=== PATIENT | female | born 1955 | race Caucasian/White ===

== ENCOUNTER 2023-02-11 06:07 | Observation (INO) ==
--- NOTE | 2023-01-28 13:21 | PAT Medication Instructions ---
Medication Instructions Date of Service January 28, 2023 Home Medications Lactobacillus acidophilus 1.5 mg (250 million cell) capsule (Probiotic Acidophilus) 1,000 mmu cells PO QAM calcium carbonate 500 mg-vitamin D3 10 mcg (400 unit) tablet (Calcium 500 + D) 1 tab PO QPM cholecalciferol (vitamin D3) 125 mcg (5,000 unit) tablet (Vitamin D3) 125 mcg PO QAM irbesartan 150 mg-hydrochlorothiazide 12.5 mg tablet 1 tab PO QAM meloxicam 7.5 mg tablet 7.5 mg PO BID multivitamin 1 tab PO QAM omega-3 fatty acids 1,000 mg PO BID sertraline 50 mg tablet 50 mg PO QPM vitamin E (dl, acetate) 180 mg (400 unit) capsule 180 mg PO QAM ASK your surgeon for instructions meloxicam 7.5 mg tablet 7.5 mg PO BID STOP taking 2 weeks before surgery omega-3 fatty acids 1,000 mg PO BID vitamin E (dl, acetate) 180 mg (400 unit) capsule 180 mg PO QAM DO NOT take the morning of surgery Lactobacillus acidophilus 1.5 mg (250 million cell) capsule (Probiotic Acidophilus) 1,000 mmu cells PO QAM cholecalciferol (vitamin D3) 125 mcg (5,000 unit) tablet (Vitamin D3) 125 mcg PO QAM irbesartan 150 mg-hydrochlorothiazide 12.5 mg tablet 1 tab PO QAM multivitamin 1 tab PO QAM Take evening before surgery sertraline 50 mg tablet 50 mg PO QPM calcium carbonate 500 mg-vitamin D3 10 mcg (400 unit) tablet (Calcium 500 + D) 1 tab PO QPM OTHERWISE NOTHING TO EAT OR DRINK AFTER MIDNIGHT Other Notes If you have any questions please call us at [phone] or [phone] or [phone] or [phone]
--- NOTE | 2023-02-02 14:52 | Anesthesiology Consultation ---
Date of Service February 02, 2023 Assessment & Plan (1) Encounter for pre-operative examination: - COVID screening: Per assessment on 02/02: No known COVID-19 positive contacts or current COVID-19 related symptoms. Travel screen negative. Patient vaccinated. At surgeon discretion if preop Covid testing being done. - Outpatient joint assessment: Pt currently scheduled for inpatient pathway. If surgeon requests review for outpatient joint pathway, patient is an acceptable candidate for outpatient joint program from anesthesia standpoint pending surgeon's office assessment that patient is motivated, has good support and completes [facility] Program preop requirements. - Cardiology visit (12/28/22): "Patient has no cardiovascular complaints. Transthoracic echocardiogram recently.. Demonstrates normal left ventricular systolic function with mild aortic stenosis and moderate mitral regurgitation.. Patient does have normal left ventricular systolic function. At this time recommend monitoring patient clinically.. periodic transthoracic echocardiogram to assess for progression of valvular heart disease. Patient has no signs or symptoms of heart failure. Patient has no complaints of chest pain or shortness of breath. We will obtain a transthoracic echocardiogram prior to next scheduled visit in 1 year. Patient states she is planning on undergoing a knee replacement next month.. From a cardiovascular standpoint, do not recommend further invasive or noninvasive cardiovascular testing or procedures prior to planned knee replacement. Patient should be considered a low cardiovascular risk candidate." - PCP note (02/04/23): "Yes" medically cleared for surgery Chart Review Chart Review: Acceptable Risk for Surgery and Patient seen in Pre Admission Testing Teaching & Discussion Pre-Anesthesia Teaching/Discussion Notes: Instructed NPO after midnight before surgery,except medications with 15 cc of water. Medication instructions provided according to the PAT guidelines. History Surgery Operation Date: 02/11/23 07:00 Proposed Procedures p Right Total Knee Arthroplasty - Marty Vicente MD Height/Weight Height: 5 ft 4 in Weight: 96.9 kg Allergies Allergy/AdvReac Type Severity Reaction Status Date / Time oxycodone AdvReac Mild Nausea Verified 01/22/23 15:03 Medications Home Medications Medication Instructions Recorded Confirmed Last Taken Lactobacillus acidophilus 1.5 mg 1,000 mmu cells PO QAM 01/22/23 01/22/23 Unknown (250 million cell) capsule (Probiotic Acidophilus) calcium carbonate 500 mg-vitamin 1 tab PO QPM 01/22/23 01/22/23 Unknown D3 10 mcg (400 unit) tablet (Calcium 500 + D) cholecalciferol (vitamin D3) 125 125 mcg PO QAM 01/22/23 01/22/23 Unknown mcg (5,000 unit) tablet (Vitamin D3) irbesartan 150 1 tab PO QAM 01/22/23 01/22/23 Unknown mg-hydrochlorothiazide 12.5 mg tablet meloxicam 7.5 mg tablet 7.5 mg PO BID 01/22/23 01/22/23 Unknown multivitamin 1 tab PO QAM 01/22/23 01/22/23 Unknown omega-3 fatty acids 1,000 mg PO BID 01/22/23 01/22/23 Unknown sertraline 50 mg tablet 50 mg PO QPM 01/22/23 01/22/23 Unknown vitamin E (dl, acetate) 180 mg 180 mg PO QAM 01/22/23 01/22/23 Unknown (400 unit) capsule Past Medical History Medical History Anxiety History of COVID-19 09/2021 > mild cold symptoms Hyperlipidemia Hypertension Lymphoma Follows with Dr Henriquez, recently monitored ("some are shrinking"), no current treatment Mild aortic stenosis Mild aortic stenosis (ROSE MARIE 1.2 cm, MG 17 mmHg) per 09/2022 echo Osteoarthritis Sleep apnea CPAP Exercise / Class Metabolic Activity II 4-5 Yardwork/Stairs/Walk up hill Past Family History Family History Other No family history of adverse response to anesthesia Past Surgical History Surgical History History of cataract surgery R/L History of cholecystectomy History of colonoscopy History of esophagogastroduodenoscopy (EGD) Past Anesthesia History No Hx of Anesthesia Complications and No Family Hx of Anesthesia Complications History of PONV No Hx of PONV and No Hx of Motion Sickness Social History Smoking Status: Never smoker Do You Dip or Chew Tobacco: No Hx Alcohol Use: Yes alcohol intake frequency: a few times a month Hx Substance Use: No substance use type: does not use Review of Systems Patient denies chest pain, shortness of breath, dyspnea on exertion, reflux, cough, wheezing, palpitations. Physical Exam Vital Signs VITALS BP 135/79 P 66 TEMP 98.3 SP02 95%RA RESP 16 PHYSICAL Full cervical extension range of motion. Full TMJ range of motion. TMD 3 finger breaths Mallampati Score 3 Dentition: intact, + crowns, upper front "sealed together" Lungs: clear throughout to auscultation Cardiac: regular rate and rhythm, II-III/ systolic murmur with faint carotid bruit Spine: normal Extremities: no LE edema Lab Results Anesthesia Preop Results Results Anesthesia Widget: WBC 7.93 K/ul (4.8-10.8) 02/02/23 Hgb 13.6 g/dl (12.0-16.0) 02/02/23 Hct 40.6 % (37.0-47.0) 02/02/23 Plt 243 K/uL (130-400) 02/02/23 Na 141 mmol/L (136-145) 02/03/23 K 3.6 mmol/L (3.5-5.1) 02/03/23 Cl 104 mmol/L (98-107) 02/03/23 CO2 30 mmol/L (21-32) 02/03/23 BUN 16 mg/dl (6-23) 02/03/23 Creat 0.57 mg/dl (0.6-1.2) L 02/03/23 Glucose Level 101 mg/dl (70-99(Fasting)) H 02/03/23 PT 11.0 Seconds (9.0-12.0) 02/02/23 PTT 28.1 Seconds (21.0-31.0) 02/02/23 INR 1.0 (0.9-1.1) 02/02/23 Urine Color Yellow 02/02/23 Urine Appearance Clear (Clear) 02/02/23 Urine pH 7.0 (4.5-7.5) 02/02/23 Urine Specific [place] 1.013 (1.000-1.030) 02/02/23 Urine Protein Negative (Negative) 02/02/23 Urine Glucose (UA) Negative (Negative) 02/02/23 Urine Ketones Negative (Negative) 02/02/23 Urine Blood Trace (Negative) H 02/02/23 Urine Nitrite Negative (Negative) 02/02/23 Urine Bilirubin Negative (Negative) 02/02/23 Urine Urobilinogen Negative (Negative) 02/02/23 Urine Leukocyte Esterase Negative (Negative) 02/02/23 Urine WBC (Auto) 1-5 /hpf (0-5) 02/02/23 Urine RBC (Auto) 5-10 /hpf (0-4) H 02/02/23 Urine Hyaline Casts (Auto) 0 /lpf (0-5) 02/02/23 Urine Epithelial Cells (Auto) 10-20 /lpf (0-5) H 02/02/23 Urine Bacteria (Auto) Negative (Negative) 02/02/23 Blood Type O Negative 02/02/23 Antibody Screen NEGATIVE 02/02/23 Testing Electrocardiogram Date: 12/28/22 Sinus rhythm at 63 bpm. Low voltage in precordial leads. Intraventricular conduction defect and left axispossible anterior fascicular block consider ventricular hypertrophy. Old anterior infarct. Echocardiogram Date: 10/15/22 LVEF 58%. LV global contractility normal. Mild LAE. Fibrocalcific disease of the aortic valve. Grade 2 diastolic dysfunction. Elevated LAP. Moderate MR. Mild concentric LVH. Mild aortic stenosis (ROSE MARIE 1.2 cm, MG 17 mmHg). COVID-19 Risk Screen Screening Information COVID-19 Screen Date: 02/02/23 Exposure 21 Days Family/Household +COVID Last 21 Days: No Exposure 10 Days Any COVID Exposure Last 10 Days: No Symptoms Last 10 Days Experienced COVID Sx Last 10 Days: No + COVID 0-90 Days COVID + in Last 0-90 Days: No
--- NOTE | 2023-02-03 16:31 | History & Physical Report ---
Date of Service February 03, 2023 Assessment & Plan (1) Osteoarthritis of right knee: Plan: PRE-OP Diagnosis: Right knee osteoarthritis Planned Procedure: Right total knee arthroplasty Plan: Patient is scheduled to undergo this procedure at the [facility] with Dr. Vicente on , February 11, 2023. Risks and complications of the procedure such as: Infection, bleeding, pain, scarring, nerve blood vessel damage, weakness, wound problems, stiffness, incomplete relief of symptoms, hardware failure, hardware loosening, wear, fracture, tendon or ligament injury, blood clots, embolism, cardiac, stroke and were explained to the patient at her visit today and informed consent for the procedure will be obtained on the morning of surgery with Dr. Vicente. Patient also understands risks of proceeding with surgical intervention during the COVID-19 pandemic. Currently she is asymptomatic and states that she has not been in contact with anyone positive for the virus recently. We will need to obtain preoperative medical clearance from the patient's primary care provider Dr. Kennedy. We have already obtained cardiac clearance from the patient's loom setter Dr. Melgar. Patient is scheduled to meet with anesthesia at the hospital later this afternoon. While there she will obtain a CBC with differential, complete metabolic panel, PT/INR, PTT, blood type and screen, urinalysis, urine culture and sensitivity, and a nasal culture for MRSA. Her EKG is up-to-date. During today's visit we reviewed the total knee packet. I provided the patient with paperwork to obtain obtaining a handicap placard for her vehicle. I provided her with information about lectures offered by [facility] in regards to joint replacement surgery. Patient states that she has a walker she will bring with her on the morning of surgery. She also has a raised toilet seat and a shower bench. We discussed discharge planning from the hospital. Patient states she will most likely do in-home physical therapy for the first 2 weeks before transitioning to outpatient physical therapy. I advised the patient that she will be provided with a prescription for narcotic pain medication for postoperative pain control. We will have her on aspirin twice daily for the first 30 days postoperatively for blood clot prevention. Patient verbalized understanding of all information provided during today's visit. She thanks for the care that she received. If she has questions or concerns prior to her surgery, she will contact clinic. Patient be scheduled for 2-week postoperative follow-up visit with Zaida Goodson PA-C on February 25, 2023 at 10:45 AM This chart was completed utilizing [employer] voice recognition software. Grammatical errors, random word insertions, pronoun errors, and in complete sentences are an occasional consequence of the system. Any questions or concerns about the content, text, or information contained within the body of this dictation should be addressed directly to the physician for clarification.. History of Present Illness Chief Complaint: Chief Complaint: Right knee pain Primary Care Provider: NO PCP History of Present Illness (including history relevant to procedure): This 67-year-old female presents to clinic today for preoperative history and physical. Patient has a longstanding history of right knee pain. She states that she was seen by an orthopedist who outside organization and does not feel comfortable with them. She states that at the recommendation of our physical therapists she came to our clinic for evaluation by Dr. Vicente and was very impressed and would like to proceed with her total knee surgery with our group. Patient has failed conservative treatment with physical therapy, use of oral nonsteroidal agents, corticosteroid injections. She states the pain seems to be exacerbated when she does stairs or transitions from a seated to a standing position after sitting for long period of time. Patient localizes most of her pain over the medial joint space. Review Of Systems: A 12 point review of systems is performed and is unremarkable except for those things stated in the HPI and past medical history. Past Medical History: Problems: History of a heart murmur Hypertension Heart palpitations Sleep apnea with CPAP use Anxiety Obesity History of lymphoma Procedure History Procedure Procedure Date Comments Cholecystectomy Abdominal biopsy of lymph node Colonoscopy Cataract removal Allergies and Sensitivities: Percocet(Nausea) Family history: Diabetes and cancer Social history: Patient occasionally consumes alcohol. She denies tobacco or illicit drug use. Current Home Meds: (Last Updated 02/02 13:41) bifidobacterium-lactobacillus (Probiotic Formula) calcium carbonate (calcium (as carbonate) 500 mg oral tablet) cholecalciferol (Vitamin D3) hydroCHLOROthiazide-irbesartan (hydroCHLOROthiazide-irbesartan 12.5 mg-150 mg oral tablet) 1 tab PO Daily meloxicam (meloxicam 7.5 mg oral tablet) 7.5 mg PO Daily multivitamin 1 tab PO Daily omega-3 polyunsaturated fatty acids (Fanshawe-3 Fish Oil) sertraline (sertraline 50 mg oral tablet) 50 mg PO Daily vitamin E Allergies Allergy/AdvReac Type Severity Reaction Status Date / Time oxycodone AdvReac Mild Nausea Verified 01/22/23 15:03 Home Medications Medication Instructions Recorded Confirmed Type Lactobacillus acidophilus 1.5 mg 1,000 mmu cells PO QAM 01/22/23 01/22/23 History (250 million cell) capsule (Probiotic Acidophilus) calcium carbonate 500 mg-vitamin 1 tab PO QPM 01/22/23 01/22/23 History D3 10 mcg (400 unit) tablet (Calcium 500 + D) cholecalciferol (vitamin D3) 125 125 mcg PO QAM 01/22/23 01/22/23 History mcg (5,000 unit) tablet (Vitamin D3) irbesartan 150 1 tab PO QAM 01/22/23 01/22/23 History mg-hydrochlorothiazide 12.5 mg tablet meloxicam 7.5 mg tablet 7.5 mg PO BID 01/22/23 01/22/23 History multivitamin 1 tab PO QAM 01/22/23 01/22/23 History omega-3 fatty acids 1,000 mg PO BID 01/22/23 01/22/23 History sertraline 50 mg tablet 50 mg PO QPM 01/22/23 01/22/23 History vitamin E (dl, acetate) 180 mg 180 mg PO QAM 01/22/23 01/22/23 History (400 unit) capsule Past Med/Surg History Medical History Anxiety Cardiac murmur no issues - followed with [facility] for clearance - does not normally follow with a cardiology History of COVID-19 09/2021 > mild cold symptoms Hyperlipidemia Hypertension Lymphoma Follows with Dr Henriquez, recently monitored ("some are shrinking"), no current treatment Sleep apnea CPAP Surgical History History of cataract surgery R/L History of cholecystectomy History of colonoscopy History of esophagogastroduodenoscopy (EGD) Family History Other No family history of adverse response to anesthesia Social History Smoking Status: Never smoker Second Hand Exposure: Yes (years ago); Do You Dip or Chew Tobacco: No; Hx Alcohol Use: Yes Hx Substance Use: No Preferred Language: [place] Communication Ability: Effective Airplane Tester Required: No Beliefs That Will Affect Care: None Current Living Situation: Alone Feels Safe at Home: Yes Assistive Devices: Brace/Splint/Immobilizer and CPAP Review of Systems All systems reviewed & are unremarkable except as noted in Subjective Physical Exam Physical Exam: Physical Exam: (relevant to the procedure, including heart and lung evaluation) General: Alert and oriented x3 with proper grooming and hygiene Eyes: Pupils are equal react to light with accommodation. Extraocular movements are intact Throat: Posterior oropharynx clear with absence of edema, erythema or exudate. Dentition is appropriate Cardiac: Patient is a regular rate and rhythm with a grade 3/6 midsystolic murmur heard best over left lower sternal border. Lungs: Clear to auscultation throughout with no wheezing, rales or rhonchi appreciated Abdomen: Obese, nondistended, nontender with NABS Extremities: Right knee; range of motion is from 0 degrees of extension to 118 degrees of flexion. Patient experiences some slight medial joint line tenderness when the knee is palpated in flexed position. There is audible crepitation with passive range of motion. There is visible varus malalignment. Her patella is normal lateral arthritic change within the patellofemoral joint. She has no laxity with varus valgus stressing. AP drawer sign Romana test are negative. Patient is neurovascular intact in the right lower extremity. Neuro: Cranial nerves II through XII are intact no motor or sensory deficit Skin: Normal in appearance no open skin areas or discharge Results & Data Diagnostic Findings Studies (relevant to the procedure): X-rays done include standing long-leg alignment films. These show varus malalignment with the weightbearing axis passing through the medial tibial plateau. She has severe osteoarthritis near [id number] in the medial compartment of the knee.
[~2023-02-11 06:07] MED LIST: ACETAMINOPHEN 500 MG TAB PO SCH; CeleBREX 200 MG CAP PO SCH; FAMOTIDINE 20 MG TAB PO SCH; LR 500ML BOLUS, THEN 15ML/HR IV SCH; LR 60ML/HR IV SCH; ROPIVACAINE 0.5% HCL/PF 150 MG, BUPIVACAINE 0.75% MPF 20 ML, EPINEPHrine 0.15 MG, Ketor... INFIL SCH; Scopolamine 1 MG TDSY TD SCH; TRANEXAMIC ACID 1,000 MG **IV Intra-op IV SCH; TRANEXAMIC ACID 1,000 MG **IV Pre-op IV SCH; ceFAZolin 2000MG 2,000 MG/15 ML SYR IV SCH; dexAMETHasone 4 MG TAB PO SCH; traMADol HCL 50 MG TABLET PO SCH
[2023-02-11] MEDS ORDERED: ROPIVACAINE 0.5% 5 MG/ML 30 ML VIAL ONE (06:42)
[2023-02-11] MEDS ORDERED: LIDOCAINE 2% 2 ML VIAL/AMP(20MG/ML) INFIL ONE (07:38)
[2023-02-11] MEDS ORDERED: MIDAZOLAM HCL 1 MG/ML 2ML VIAL ONE (07:38)
[2023-02-11] MEDS ORDERED: PROPOFOL IV EMULSION 10 MG/ML 20 ML VIAL IV ONE ×3 (07:38→10:20)
[2023-02-11] MEDS ORDERED: fentaNYL citrate PF 100 MCG/2 ML VIAL ONE (07:38)
[2023-02-11] MEDS ORDERED: DEXAMETHASONE SOD INJ 4 MG/ML VIAL ONE (08:16)
[2023-02-11] MEDS ORDERED: ONDANSETRON INJ 2 MG/ML 2 ML VIAL ONE (08:17)
[2023-02-11] MEDS ORDERED: fentaNYL citrate PF 100 MCG/2 ML VIAL IV PRN (08:33)
[2023-02-11] MEDS ORDERED: ePHEDrine sulfate 50 MG/ML AMP IV PRN (08:33)
[2023-02-11] MEDS ORDERED: HYDROmorphone INJ 2 MG/ML SYR/VIAL IV PRN (08:33)
[2023-02-11] MEDS ORDERED: ONDANSETRON INJ 2 MG/ML 2 ML VIAL IV PRN ×2 (08:33→11:03)
[2023-02-11] MEDS ORDERED: ATROPINE SULFATE 0.1 MG/ML 10ML SYR IV PRN (08:33)
--- NOTE | 2023-02-11 08:41 | History & Physical Bridge Note ---
Date of Service February 11, 2023 History & Physical Bridge Note I have examined the patient, reviewed the History & Physical and in the interval since the performance of the History & Physical I have noted the following changes of clinical significance: no changes noted
[2023-02-11] MEDS ORDERED: ORTHO JOINT ANESTHETIC ONE (08:51)
[2023-02-11] MEDS ORDERED: KETAMINE 50 MG/5 ML SYRINGE ONE (09:24)
--- NOTE | 2023-02-11 10:58 | Operative Report ---
Post Operative Report Pre & Post Diagnosis Operation Date: 02/11/23 08:50 Pre-Op Diagnosis: Unilateral Primary Osteoarthritis, Right Knee Post-Op Diagnosis: Unilateral Primary Osteoarthritis, Right Knee I identified the patient and participated in the time-out.: Yes Procedure Operation Date: 02/11/23 08:50 Actual Procedures p Right Total Knee Arthroplasty(Right) - Marty Vicente MD Surgeon Marty Vicente MD Nut Sheller Machine Operator VISHNU Chaparro PA-C and TRESA Funk. No resident or fellow available Estimated Blood Loss 50 Findings Consistent with Post-Op Diagnosis Specimens Bone and soft tissue contents, right knee Anesthesia Type Spinal MAC Complications none Disposition Disposition: Recovery Room Indications 67-year-old female, with right knee osteoarthritis refractory to conservative management. I had a long discussion with her about the risks and benefits of surgery, alternatives to surgery, and expected outcomes. After reviewing all these she elected to proceed with surgery. All questions were answered. Informed consent was signed. Description of Procedure Patient was identified in the preoperative holding area where the surgical site, right knee, was marked. Spinal anesthetic was placed by anesthesia. Patient was brought back to the operating room, placed on the operating room table, and IV sedation was administered. A bump was placed underneath the ipsilateral hip. All bony prominences were padded. Perioperative antibiotics and tranexamic acid were administered. Exam under anesthesia was performed. This demonstrated patient to have a range of motion arc of 5 to 100 degrees. Stable to varus and valgus at 30 degrees. The surgical site was prepped and draped in the normal sterile fashion. Prior to incision a multidisciplinary timeout was called. All in the room were in agreement. We began by exsanguinating the limb with an Esmarch bandage. Tourniquet was inflated to 250 mmHg. A 14 cm long incision was made over the anterior aspect of the knee. I dissected through the subcutaneous tissues to the level of the fascia. Full-thickness flaps were raised above the fascia. A median parapatellar arthrotomy was made. Half the fat pad was excised. A medial release was performed with Bovie electrocautery on the proximal tibia. Synovitis in the knee and suprapatellar pouch was removed. Inspection of the knee at this time revealed the patient to have eburnated bone in the medial compartment on both the tibia and the femur. Chondral thinning was also noted of the lateral compartment and the patellofemoral compartment. Tricompartmental osteophytes are noted. The patella was then everted and held with 2 towel clips. The thickness of the patella was measured at 22 mm. Patellar resection was performed. Caliper showed the patella thickness now to be 14 mm. A size 38 trial was placed and had a great fit. The 3 drill holes were placed then the trial button was placed. The patellar thickness was now 24 mm which I was very happy with. The patellar trial was then removed, and the knee was flexed up. Retractors were placed to protect the MCL and LCL. Osteophytes were removed from the femoral condyles and intercondylar notch. The ACL and PCL were excised. Intramedullary drill guide was drilled into the femur. Distal femoral cutting guide was placed set at 5 degrees of valgus to resect 10 mm off the distal femur. Distal femoral resection was made without difficulty. The tibia was then exposed. The lateral meniscus was sharply excised. The tibial cutting jig was positioned in line with the tibial shaft in the coronal plane and with 3 degrees of posterior slope in the sagittal plane to resect 4 mm off the medial compartment. The jig was then pinned in position and the tibial cut was made. We then brought the knee into full extension. Lamina spreaders were placed. The medial meniscus was excised. The extension block was then placed for 6 mm thickness poly. This gave us full extension and excellent stability to varus and valgus stress. Next the extension block was removed, the knee was flexed up, collateral ligaments were protected, and the epicondylar axis and Whitesides line were marked out on the distal femoral cut. Femoral sizing guide was placed. External rotation was set at 3 degrees so that the posterior cut would be parallel with the epicondylar axis and perpendicular with Whitesides line. The patient sized to a size 5 femur. 2 pins were then placed through the jig into the distal femur. The jig was removed and the appropriately sized 4-in-1 cutting jig was placed over the pins, then fixated to the bone using threaded, headed pins. We confirmed that we would not notch the femur with our anterior cut. Our 4 cuts were then made. The cutting jig was removed. The flexion block was then placed with the knee held at 90 degrees. There was excellent stability to varus and valgus at 90 degrees with no gapping medially or laterally. Next the box cutting jig was placed on the distal femur. The box cut was made and the femoral trial was impacted into position. Lug holes were drilled in the distal femur. We then reexposed the tibia. The tibia was sized to a 4 for a fixed-bearing component. The tibial tray with a 6 mm thickness polyethylene liner was placed on the cut tibial surface and the knee was brought through a full range of motion. There was excellent stability to varus valgus stress throughout a full range of motion, which was approximately 0-125 degrees. Bovie electrocautery was used to emeterio the tibia at the site where the tibial tray rested in full extension. We then flexed up the knee, removed the polyethylene liner, and pinned the tibial tray into position to match the cautery emeterio. The intramedullary drill followed by the keel punch were used to prepare the tibia. Next the trial components were removed. I then injected the posterior capsule and periosteum with the periarticular injection cocktail. The bone cuts were then irrigated and dried while the cement was mixed on the back table. The femoral component was cemented on first. Excess cement was removed. A lap sponge was placed over the femoral component for protection, then the tibia was subluxated anteriorly. The all polyethylene tibial component was then cemented in place. Again excess cement was removed. The knee was brought into full extension and held there until the cement cured. The patella was cemented and clamped. Dilute Betadine solution was then allowed to soak in the knee while the cement cured. Once the cement was fully cured, the knee was irrigated out, the tourniquet was let down and meticulous hemostasis was ensured. The knee was brought through a full range of motion. I was were very happy with the patella tracking and the stability. We then began to close. Interrupted 0 Vicryl suture was used to repair the patellar retinaculum in [id number] fashion. The quadriceps and patellar tendons were run with #1 Vicryl. The deep dermal layer was closed with interrupted 2-0 Vicryl. Dermabond and Zipline was used for the skin, followed by a Silverlon dressing. A compressive Chidi wrap was placed and the knee was placed into a knee immobilizer. Patient's sedation was lifted and was transferred to recovery room in stable condition. Summary of implants: Depuy Attune Posterior Stabilized Cemented Femur, size 5 right Attune All-polyethylene tibial component, posterior stabilized 6 mm thickness, size 4 Attune patella medialized dome, size 38 2 batches of simplex high viscosity bone cement Postoperative course: Patient will be admitted to the floor for pain control and monitoring. Weightbearing as tolerated with a walker with no knee range of motion for 48 hours. Aspirin for DVT prophylaxis. I attest to the content of the Intraoperative Record and any orders documented therein. Any exceptions are noted below.
[2023-02-11] MEDS ORDERED: METOCLOPRAMIDE HCL INJ 5 MG/ML 2 ML VIAL IV PRN (11:03)
[2023-02-11] MEDS ORDERED: ALUMINUM/MAGNESIUM SUSP 30 ML UDC PO PRN (11:03)
[2023-02-11] MEDS ORDERED: bisacodyL 10 MG SUPP PR PRN (11:03)
[2023-02-11] MEDS ORDERED: NALOXONE HCL 0.4 MG/1 ML VIAL/CARP IV PRN (11:03)
[2023-02-11] MEDS ORDERED: HYDROmorphone INJ 0.5 MG/0.5 ML SYR IV PRN (11:03)
[2023-02-11] MEDS ORDERED: MAGNESIUM HYDROXIDE SUSP 30 ML UDC PO PRN (11:03)
[2023-02-11] MEDS ORDERED: diphenhydrAMINE 50 MG/ML VIAL IV PRN (11:03)
--- NOTE | 2023-02-11 11:03 | Operative Report ---
Post Operative Report Pre & Post Diagnosis Operation Date: 02/11/23 08:50 Pre-Op Diagnosis: Unilateral Primary Osteoarthritis, Right Knee Post-Op Diagnosis: Unilateral Primary Osteoarthritis, Right Knee I identified the patient and participated in the time-out.: Yes Procedure Operation Date: 02/11/23 08:50 Actual Procedures p Right Total Knee Arthroplasty(Right) - Marty Vicente MD Surgeon Marty Vicente MD Front Attendant VISHNU Chaparro PA-C and Eugene Sheppard, TRESA. No resident or fellow available Estimated Blood Loss 50 Findings Consistent with Post-Op Diagnosis Specimens none Description of Procedure I was present during the entire case assisting with positioning, prepping, draping, wound retraction, wound closure, dressing and immobilizer placement. No fellow present. Please see Dr. Vicente procedure note for specifics of the case. I attest to the content of the Intraoperative Record and any orders documented therein. Any exceptions are noted below.
--- NOTE | 2023-02-11 11:54 | Anesthesiology Progress Note ---
Date of Service February 11, 2023 Anesthesia Post Procedure Vital Signs Vital Signs: Temp Pulse Pulse Resp BP Pulse Ox O2 Del Method 02/11/23 11:50 68 18 119/60 94 Nasal Cannula 02/11/23 11:20 78 16 117/60 95 Oxymask 02/11/23 11:40 71 20 118/58 L 94 Nasal Cannula 02/11/23 11:30 36.4 C L 63 12 119/59 L 97 Nasal Cannula 02/11/23 11:10 72 20 128/66 98 Oxymask 02/11/23 11:01 36.4 C L 81 18 129/57 L 94 Oxymask 02/11/23 06:38 Room Air 02/11/23 06:38 36.5 C 68 21 182/85 H 96 Room Air O2 Flow Rate 02/11/23 11:50 2 02/11/23 11:20 4 02/11/23 11:40 2 02/11/23 11:30 2 02/11/23 11:10 6 02/11/23 11:01 6 02/11/23 06:38 02/11/23 06:38 Transfer of Care Handoff Completed per policy Notes Mental Status: alert / awake / arousable and participated in evaluation Patient Amnestic to Procedure: Yes Nausea / Vomiting: adequately controlled Pain: adequately controlled Airway Patency, RR, SpO2: stable & adequate BP & HR: stable & adequate Hydration State: stable & adequate Neuraxial Anesthesia: was administered and sensory block is resolving Anesthetic Complications: no major complications apparent and Pt Satisfied with anesthetic care
--- NOTE | 2023-02-11 11:56 | XRay Report ---
XR knee RT 1 or 2V routine HISTORY: 67 years-old Female Surgical Post Op right knee arthroplasty COMPARISON: 02/02/2023 TECHNIQUE: 2 views of the right knee FINDINGS: Satisfactory alignment of the right knee total joint arthroplasty and patellar resurfacing. Anterior gauze material is noted along with expected postoperative soft tissue swelling with deep tissue air. No acute fracture or unexpected opaque foreign body identified. IMPRESSION: Total joint arthroplasty with expected postoperative changes. ACT 112: Negative or not required by law. The above report was generated using voice recognition software. It may contain grammatical, syntax o r spelling errors. Electronically signed by: Tad Morris M.D. 02/11/2023 11:55 AM
[2023-02-11] MEDS: SODIUM CHLORIDE 0.9% 1000ML 1,000 ML IV SCH ×2 (12:43→22:26)
[2023-02-11] MEDS: ACETAMINOPHEN 500 MG TAB PO SCH ×2 (13:58→22:02)
[2023-02-11] MEDS: KETOROLAC TROMETHAMINE 15 MG/ML VIAL IV SCH ×2 (13:58→18:36)
[2023-02-11] MEDS: oxyCODONE HCL IR 5 MG TAB (IMMEDIATE RELEASE) PO PRN ×2 (15:24→19:52)
[2023-02-11] MEDS: Scopolamine CHECK PATCH PLACEMENT SCH ×2 (16:16→23:51)
[2023-02-11] MEDS ORDERED: TRANEXAMIC ACID / 0.7% NACL 1,000 MG/100 ML BAG IV SCH (17:15)
[2023-02-11] MEDS: ceFAZolin 2000MG 2,000 MG/15 ML SYR IV SCH (18:04)
[2023-02-11] MEDS: DOCUSATE SODIUM 100 MG CAP PO SCH (20:48)
[2023-02-11] MEDS: OMEGA-3 (PURIFIED FISH OIL) 1 GM CAP PO SCH (20:49)
[2023-02-11] MEDS ORDERED: CALCIUM 600MG + VIT D 400 IU TAB PO SCH (21:00)
[2023-02-11] MEDS ORDERED: SERTRALINE HCL 50 MG TABLET PO SCH (21:00)
[2023-02-11] MEDS ORDERED: SENNA 8.6 MG TAB PO SCH (21:00)
[2023-02-12] MEDS: ceFAZolin 2000MG 2,000 MG/15 ML SYR IV SCH (01:21)
[2023-02-12] MEDS: KETOROLAC TROMETHAMINE 15 MG/ML VIAL IV SCH ×2 (01:22→06:10)
[2023-02-12] MEDS: oxyCODONE HCL IR 5 MG TAB (IMMEDIATE RELEASE) PO PRN ×2 (04:38→09:40)
[2023-02-12] MEDS: ACETAMINOPHEN 500 MG TAB PO SCH (06:09)
[2023-02-12] MEDS: DOCUSATE SODIUM 100 MG CAP PO SCH (07:50)
[2023-02-12] MEDS: OMEGA-3 (PURIFIED FISH OIL) 1 GM CAP PO SCH (07:50)
[2023-02-12] MEDS ORDERED: dexAMETHasone 4 MG TAB PO SCH (08:00)
[2023-02-12] MEDS: Scopolamine CHECK PATCH PLACEMENT SCH (08:23)
[2023-02-12 08:32] LABS: Hematocrit (blood only) 32.8 % (37.0-47.0); Mean Corpuscular Hemoglobin 29.7 pg (25.0-34.0); Mean Corpuscular Hgb Conc 33.5 g/dL (32.0-36.0); Mean Corpuscular Volume 88.6 fL (80.0-100.0); Mean Platelet Volume 9.9 fL (9.4-12.4); Platelet Count 211 K/uL (130-400); RDW Coefficient of Variation 14.4 % (11.5-14.5); RDW Standard Deviation 45.9 fL (36.4-46.3); White Blood Count 10.89 K/ul (4.8-10.8)
[2023-02-12 08:38] LABS: BUN Creatinine Ratio 32.9 (10-20); Creatinine Clr Calc Pharmacy 78.2 ml/min; Est GFR (African American) 92.8 ml/min
[2023-02-12] MEDS ORDERED: MULTIVITAMIN TAB PO SCH (09:00)
[2023-02-12] MEDS ORDERED: LOSARTAN POTASSIUM 50 MG TAB PO SCH (09:00)
[2023-02-12] MEDS ORDERED: TOCOPHERYL, DL-ALPHA 400 UNITS 180 MG CAP PO SCH (09:00)
[2023-02-12] MEDS ORDERED: NON-FORMULARY MEDICATION (Irbesartan-Hydrochlorothiazide 150-12.5 mg Tablet) PO SCH (09:00)
[2023-02-12] MEDS ORDERED: NON-FORMULARY MEDICATION (Multivitamin Tablet) PO SCH (09:00)
[2023-02-12] MEDS ORDERED: CHOLECALCIFEROL 5,000 UNITS 125 MCG TAB PO SCH (09:00)
[2023-02-12] MEDS ORDERED: ADVANCED PROBIOTIC 1250 MG CAPSULE PO SCH (09:00)
[2023-02-12] MEDS ORDERED: ASPIRIN 81 MG ECTAB PO SCH (09:00)
[2023-02-12] MEDS ORDERED: hydroCHLOROthiazide 25 MG TAB PO SCH (09:00)
[2023-02-12] MEDS ORDERED: CeleBREX 200 MG CAP PO SCH (09:00)
--- NOTE | 2023-02-12 10:00 | Orthopedic Progress Note ---
Date of Service February 12, 2023 Assessment & Plan (1) S/P total knee arthroplasty: Plan: Weightbearing as tolerated with walker assistance and immobilizer for the first 48 hours postoperatively PT/OT Keep Silverlon dressing in place Ice with easy wrap Pain control with p.o. medication DVT prophylaxis with aspirin and DALTON stockings Plan is to discharge home today with in-home physical therapy for the first 2 weeks postoperatively Follow-up at [facility] orthopedics as previously scheduled With questions contact our clinic at [phone] Admission and Anticipated Discharge Date Admission Date: February 11, 2023 Subjective This 67-year-old female seen this morning day 1 status post right total knee arthroplasty. Patient states she is doing very well. She states her pain is well controlled with the p.o. pain medication. She states that she has been able to transition from her bed to the chair and from the chair to the bathroom with walker assistance and immobilizer in place. Currently she denies chest pain, shortness of breath, fever, chills, sweats, lethargy or numbness or tingling in her right lower extremity. Review of Systems Review of Systems: All systems reviewed & are unremarkable except as noted in Subjective Physical Exam Physical Exam: Right knee: Outer dressing was removed. Silverlon is clean dry and intact and left in place. Patient does have some mild edema and ecchymosis around the knee joint. There is no erythema or warmth. She is able to perform active straight leg raise test and actively dorsi and plantarflex her foot without issue. Quad strength is 3+ out of 5. Patient's calf is soft and supple nontender to palpation. Her peripheral pulses are 2+. Her capillary fill is less than 2 seconds. She is neurovascularly intact in the right lower extremity. There is no clunking with light varus or valgus stressing. Active knee range of motion from 0 to 90 degrees without issue. Results & Data Vital Signs (Past 12 Hours) Vital Signs Temp Pulse Resp BP Pulse Ox O2 Del Method 02/12/23 06:39 36.7 C 65 16 119/57 L 96 Room Air 02/12/23 04:01 36.6 C 72 16 113/56 L 96 CPAP 02/11/23 23:04 36.7 C 67 16 108/53 L 96 CPAP Diagnostic Findings Laboratory Results WBC 10.89 K/ul (4.8-10.8) H 02/12/23 07:47 RBC 3.70 M/uL (4.20-5.40) L 02/12/23 07:47 Hgb 11.0 g/dl (12.0-16.0) L 02/12/23 07:47 Hct 32.8 % (37.0-47.0) L 02/12/23 07:47 MCV 88.6 fL (80.0-100.0) 02/12/23 07:47 MCH 29.7 pg (25.0-34.0) 02/12/23 07:47 MCHC 33.5 g/dL (32.0-36.0) 02/12/23 07:47 RDW Std Deviation 45.9 fL (36.4-46.3) 02/12/23 07:47 RDW Coeff of Naomy 14.4 % (11.5-14.5) 02/12/23 07:47 Plt Count 211 K/uL (130-400) 02/12/23 07:47 MPV 9.9 fL (9.4-12.4) 02/12/23 07:47 Sodium 139 mmol/L (136-145) 02/12/23 07:47 Potassium 4.0 mmol/L (3.5-5.1) 02/12/23 07:47 Chloride 108 mmol/L (98-107) H 02/12/23 07:47 Carbon Dioxide 25 mmol/L (21-32) 02/12/23 07:47 Anion Gap 6 (3-11) 02/12/23 07:47 BUN 25 mg/dl (6-23) H 02/12/23 07:47 Creatinine 0.76 mg/dl (0.6-1.2) 02/12/23 07:47 Est Cr Clr Drug Dosing 78.2 ml/min 02/12/23 07:47 Est GFR ( Amer) 92.8 ml/min 02/12/23 07:47 Est GFR (Non-Af Amer) 80.0 ml/min 02/12/23 07:47 BUN/Creatinine Ratio 32.9 (10-20) H 02/12/23 07:47 Glucose 127 mg/dl (70-99(Fasting)) H 02/12/23 07:47 Calcium 9.0 mg/dl (8.6-10.3) 02/12/23 07:47 SARS-CoV-2, RNA, NAAT NEGATIVE (NEGATIVE) 02/11/23 06:30 Impressions Knee X-Ray 02/11/23 11:06 XR knee RT 1 or 2V routine HISTORY: 67 years-old Female Surgical Post Op right knee arthroplasty COMPARISON: 02/02/2023 TECHNIQUE: 2 views of the right knee FINDINGS: Satisfactory alignment of the right knee total joint arthroplasty and patellar resurfacing. Anterior gauze material is noted along with expected postoperative soft tissue swelling with deep tissue air. No acute fracture or unexpected opaque foreign body identified. IMPRESSION: Total joint arthroplasty with expected postoperative changes. ACT 112: Negative or not required by law. The above report was generated using voice recognition software. It may contain grammatical, syntax or spelling errors. Electronically signed by: Tad Morris M.D. 02/11/2023 11:55 AM
--- NOTE | 2023-02-12 10:09 | Discharge Summary ---
Date of Service February 12, 2023 Admission HPI Per Admitting Provider History of Present Illness (including history relevant to procedure): This 67-year-old female presents to clinic today for preoperative history and physical. Patient has a longstanding history of right knee pain. She states that she was seen by an orthopedist who outside organization and does not feel comfortable with them. She states that at the recommendation of our physical therapists she came to our clinic for evaluation by Dr. Vicente and was very impressed and would like to proceed with her total knee surgery with our group. Patient has failed conservative treatment with physical therapy, use of oral nonsteroidal agents, corticosteroid injections. She states the pain seems to be exacerbated when she does stairs or transitions from a seated to a standing position after sitting for long period of time. Patient localizes most of her pain over the medial joint space. Review Of Systems: A 12 point review of systems is performed and is unremarkable except for those things stated in the HPI and past medical history. Past Medical History: Problems: History of a heart murmur Hypertension Heart palpitations Sleep apnea with CPAP use Anxiety Obesity History of lymphoma Procedure History Procedure Procedure Date Comments Cholecystectomy Abdominal biopsy of lymph node Colonoscopy Cataract removal Allergies and Sensitivities: Percocet(Nausea) Family history: Diabetes and cancer Social history: Patient occasionally consumes alcohol. She denies tobacco or illicit drug use. Current Home Meds: (Last Updated 02/02 13:41) bifidobacterium-lactobacillus (Probiotic Formula) calcium carbonate (calcium (as carbonate) 500 mg oral tablet) cholecalciferol (Vitamin D3) hydroCHLOROthiazide-irbesartan (hydroCHLOROthiazide-irbesartan 12.5 mg-150 mg oral tablet) 1 tab PO Daily meloxicam (meloxicam 7.5 mg oral tablet) 7.5 mg PO Daily multivitamin 1 tab PO Daily omega-3 polyunsaturated fatty acids (Harrison-3 Fish Oil) sertraline (sertraline 50 mg oral tablet) 50 mg PO Daily vitamin E Admission Exam Per Admitting Provider Physical Exam: (relevant to the procedure, including heart and lung evaluation) General: Alert and oriented x3 with proper grooming and hygiene Eyes: Pupils are equal react to light with accommodation. Extraocular movements are intact Throat: Posterior oropharynx clear with absence of edema, erythema or exudate. Dentition is appropriate Cardiac: Patient is a regular rate and rhythm with a grade 3/6 midsystolic murmur heard best over left lower sternal border. Lungs: Clear to auscultation throughout with no wheezing, rales or rhonchi appreciated Abdomen: Obese, nondistended, nontender with NABS Extremities: Right knee; range of motion is from 0 degrees of extension to 118 degrees of flexion. Patient experiences some slight medial joint line tenderness when the knee is palpated in flexed position. There is audible crepitation with passive range of motion. There is visible varus malalignment. Her patella is normal lateral arthritic change within the patellofemoral joint. She has no laxity with varus valgus stressing. AP drawer sign Romana test are negative. Patient is neurovascular intact in the right lower extremity. Neuro: Cranial nerves II through XII are intact no motor or sensory deficit Skin: Normal in appearance no open skin areas or discharge Principal Diagnosis Right knee osteoarthritis Discharge Exam Right knee: Outer dressing was removed. Silverlon is clean dry and intact and left in place. Patient does have some mild edema and ecchymosis around the knee joint. There is no erythema or warmth. She is able to perform active straight leg raise test and actively dorsi and plantarflex her foot without issue. Quad strength is 3+ out of 5. Patient's calf is soft and supple nontender to palpation. Her peripheral pulses are 2+. Her capillary fill is less than 2 seconds. She is neurovascularly intact in the right lower extremity. There is no clunking with light varus or valgus stressing. Active knee range of motion from 0 to 90 degrees without issue. Discharge Data Allergies Allergy/AdvReac Type Severity Reaction Status Date / Time oxycodone AdvReac Mild Nausea Verified 02/11/23 06:35 Procedures Performed Operation Date: 02/11/23 08:50 Actual Procedures p Right Total Knee Arthroplasty(Right) - Marty Vicente MD Ordered Studies 02/11/23 05:00 US - OR guided needle placemen Routine Hospital Course (1) S/P total knee arthroplasty: Patient had an uneventful overnight stay following right total knee arthroplasty. She is very pleased with the care that she received. She is ready to be discharged home later this morning. Plan is to do in-home physical therapy for the first 2 weeks postoperatively. Weightbearing as tolerated with walker assistance and immobilizer for the first 48 hours postoperatively PT/OT Keep Silverlon dressing in place Ice with easy wrap Pain control with p.o. medication DVT prophylaxis with aspirin and DALTON stockings Plan is to discharge home today with in-home physical therapy for the first 2 weeks postoperatively [facility]up at [facility] as previously scheduled With questions contact our clinic at [phone] Total Time Total Time Spent Total Time Spent (In Minutes): 25 minutes Discharge Plan Discharge Items Patient Disposition: Home - Home Health Services Reason For Visit: Unilateral Primary Osteoarthritis, Right Knee Discharge Diagnosis: Right knee osteoarthritis Activity: As commented below Lifting: None Bathing: Keep incision dry Bathing Comment: may shower tomorrow Sexual Activity: Wait until after follow-up appointment Exercise/Sports: Wait until after follow-up appointment Driving/Machine Use: No driving until cleared by firefighting equipment specialist Weightbearing: Right weightbearing Weightbearing Comment: as tolerated with walker and immobilizer for first 48 hrs post op Non-emergency contact: Surgeon Call non-emergency contact if: you have any medication questions, your pain is not controlled, your temperature is above 101.5, your wound has increased drainage and your wound pain has increased Follow-up/Referrals: PCP,NO [Physician] - Diet: Regular Addtl Attending Provider Instructions: Post-operative Instructions Dear Patient and Family/Friends, Before you are discharged from the hospital, it is important to know what to expect when you get home after surgery. To that end, we have created this sheet of discharge instructions which covers many commonly asked questions. Make sure you go through this sheet in its entirety with your nurse before you are discharged. Please note that we will go over the specifics of your surgery and recovery when you return for your first post-operative visit. Sincerely, Dr. Vicente Medications 1. Oxycodone 5 mg: take 1-2 tabs every 4-6 hrs for post op pain control. This will be sent to your pharmacy. 2. Diclofenac Sodium 75 mg: take 1 tab twice daily for 30 days post operatively for pain and inflammation relief. This will be sent to your pharmacy with 1 refill. 3. Zofran 4 mg: take 1 tab every 8 hours for post op nausea/vomiting prevention. This will be sent to your pharmacy. 4. Aspirin 81 mg: take 1 tab twice daily for 30 days post operatively for blood clot prevention. Please purchase. 5. Extra Strength Tylenol 500 mg: take 2 tabs every 6-8 hour as needed for additional pain relief. Please purchase. Pain Expect to be in a fair amount of pain after surgery. Remember, our goal is not to eliminate your pain, but to make it tolerable. It is a good idea to stay ahead of your pain by taking the medications you were prescribed once you get home. Typically, the pain starts improving 3-7 days after surgery. You should start weaning off the narcotic pain medication (oxycodone, hydrocodone, hydrom orphone, morphine) as soon as your pain improves. Please call our office if your pain is not adequately controlled. Ice Ice your operative site at least 5 times a day for 15-30 minutes at a time. Make sure you have a thin cloth between the ice or cooling unit and your skin to prevent zhao bite. This is especially important if you received a nerve block. Continue icing your operative site for the first 5-7 days after surgery, then as needed. Diet/Nausea/Vomiting Start by drinking clear liquids and eating crackers. If you can tolerate this, then you may resume your normal diet. If you feel nauseated or vomit, take Zofran/ondansetron (if prescribed). Please call our office if you have intractable nausea or vomiting, or, if after hours, you may go to the Emergency Room for help. Constipation Constipation is a common side effect of narcotic pain medication. If you have not had a bowel movement within 2 days after surgery, we recommend purchasing an over the counter laxative such as Milk of Magnesia, Dulcolax, or Miralax from a local pharmacy, and taking it as instructed. Call our clinic if any questions. Slings and Braces If you were placed in a sling or brace, it must be worn at all times, including sleep. You may remove your sling or brace for physical therapy, home exercises, and showering. The length of time you will be in your brace and range of motion restrictions depends on what surgery you had; these details will be reviewed at your first post-operative appointment. Nerve block The anesthesia team sometimes places a nerve block to help with post-operative pain control. This results in significant numbness and inability to move the extremity. The nerve block usually wears off in 8-12 hours, but sometimes can last up to 24 hours. Please call our office if you are still unable to move your extremity after 24 hours, unless you received a pain pump to take home. Nerve blocks typically wear off quickly, so start taking pain medication as soon as you start feeling soreness near your surgical site. Weight bearing and Range of Motion. Do not bear any weight through your operative extremity immediately after surgery. If you had upper extremity surgery, do not lift anything with that arm. If you are in a knee brace, keep it locked in place until your follow-up. We will discuss your weight bearing, range of motion, and lifting restrictions in detail at your first post-operative appointment. Continuous Passive Motion (CPM) Machine If you were prescribed a CPM machine, it will start after your first post- operative appointment, at which time we will give you instructions on the range of motion settings and duration of treatment Physical therapy You will be given a prescription for physical therapy or occupational therapy at your first post-operative appointment. Typically, patients start therapy within 1 week of surgery Wound care and showering We will inspect your wound at your first post-operative visit, and may do a dressing change at that time. Most patients will be in a water-proof dressing that is removed 14 days after surgery. It is normal to see some dried blood on the dressing. Do not remove your dressing, paper strips or sutures yourself unless you are given permission. Showering is allowed the day after surgery. Do not scrub or remove any dressings. The wound should not be submerged underwater (i.e. in a bathtub or pool) until 4 weeks after surgery DALTON stockings If you were given white stockings, these are to be worn at all times except to shower (on both legs) for the first 2 weeks after surgery. Driving You may not drive while taking narcotic pain medication or while in a cast, splint, sling or brace. You, the patient, need to make the final determination about when you are safe to drive, however, the earliest you may consider driving after surgery is below: Hand/Wrist/Elbow Surgery: 3 days Shoulder Surgery: 2 weeks Hip,/Knee/Ankle Surgery: 4 weeks Fracture repair: 6 weeks Return to Work Your return to work depends on what surgery was done and what type of work you do. Please bring any paperwork your employer needs completed to your first post-operative visit. Also, bring a description of your job duties, as this helps us to understand what risks you may face at work. Travel Avoid long distance travel (greater than 1 hour) in airplanes and cars for the first 6 weeks after surgery. If you must travel, you need to have a Doppler ultrasound done before you travel to rule out a blood clot in your legs. Follow-up You should have a follow-up appointment already scheduled 1-2 days after surgery. If not, please contact our office to make this appointment before you leave the hospital. When to call the office It is normal to have swelling and bruising in the limb that was operated on. This will improve with time. It is also normal to have fevers for the first 2 days after surgery. Reasons you should call your doctor include: Uncontrolled pain; Nausea, vomiting, or constipation that does not improve with medication; Fevers over 101.5, chills, sweats; Drainage or bleeding from the wound; Foul odor; Spreading areas of redness; Any other concerns Pending Studies at Discharge: No Stand-Alone Forms: My [facility] Medications and DC Order Prescriptions: New aspirin 81 mg Tablet,Delayed Release (Dr/Ec) 81 mg PO BID 30 Days Qty: 60 0RF acetaminophen [Tylenol Extra Strength] 500 mg Tablet 1,000 mg PO Q8 30 Days Qty: 180 0RF oxycodone 5 mg Tablet 5 - 10 mg PO Q4H PRN (Reason: Postoperative pain control) Qty: 28 0RF ondansetron 4 mg tablet,disintegrating 4 mg PO Q8H PRN (Reason: nausea and vomiting) Qty: 14 0RF diclofenac sodium 75 mg tablet,delayed release (DR/EC) 75 mg PO BID 30 Days Qty: 60 1RF Continued multivitamin Tablet 1 tab PO QAM irbesartan-hydrochlorothiazide 150-12.5 mg Tablet 1 tab PO QAM meloxicam 7.5 mg Tablet 7.5 mg PO BID sertraline 50 mg Tablet 50 mg PO QPM omega-3 fatty acids Capsule 1,000 mg PO BID calcium carbonate-vitamin D3 [Calcium 500 + D] 500 mg-10 mcg (400 unit) Tablet 1 tab PO QPM vitamin E (dl, acetate) 180 mg (400 unit) Capsule 180 mg PO QAM cholecalciferol (vitamin D3) [Vitamin D3] 125 mcg (5,000 unit) Tablet 125 mcg PO QAM Probiotic Acidophilus 1.5 mg (250 million cell) Capsule 1,000 mmu cells PO QAM Admission Data Admit Date/Time: 02/11/23 11:03 Attending Provider: Marty Vicente Admit Provider: Marty Vicente Primary Care Provider: Yaya Kennedy Other Providers: [facility]
== END 2023-02-12 11:30 | disposition home health service (06) ==
LOC: ASU 06:07 → 3W 06:07